=== PATIENT | female | born 1985 | race American Indian/Alaskan Native ===

== ENCOUNTER 2019-06-18 08:12 | Emergency (ER) | payer MEDICARE ==
[2019-06-18 10:03] LABS: Basophils % (Auto) 0.3 % (0.0-1.8); Eosinophils % (Auto) 0.9 % (0.0-4.3); Hematocrit 23.3 % (30.3-42.9); Hemoglobin 7.5 gm/dl (10.1-14.3); Lymphocytes # (Auto) 0.6 K/mm3 (1.2-5.4); Mean Corpuscular HGB Conc 32 % (30-34); Mean Corpuscular Volume 84 fl (79-97); Monocytes # (Auto) 0.4 K/mm3 (0.0-0.8); Monocytes % (Auto) 7.7 % (0.0-7.3); Platelet Count 156 K/mm3 (140-440); Red Blood Count 2.76 M/mm3 (3.65-5.03); Red Cell Distribution Width 18.5 % (13.2-15.2)
[2019-06-18 10:52] LABS: Calcium 8.4 mg/dL (8.4-10.2)
--- NOTE | 2019-06-18 10:58 | XRay Report ---
CHEST 2 VIEWS INDICATION / CLINICAL INFORMATION: dyspnea. COMPARISON: Chest x-ray on 01/30/2017 FINDINGS: SUPPORT DEVICES: None. HEART / MEDIASTINUM: There is moderate cardiomegaly that has developed since prior study. LUNGS / PLEURA: Mild bilateral perihilar interstitial prominence probably represents pulmonary edema. No pneumothorax. No significant pleural effusion. ADDITIONAL FINDINGS: No significant additional findings. IMPRESSION: 1. Interval development of moderate cardiomegaly and bilateral perihilar interstitial opacities likel y reflecting pulmonary edema. Signer Name: Fred Juarez MD Signed: 06/18/2019 10:53 AM Workstation Name: [id number]
--- NOTE | 2019-06-18 11:03 | Emergency Department Report ---
ED Shortness of Breath HPI - General Chief Complaint: Dyspnea/Respdistress Stated Complaint: SOB Time Seen by Provider: 06/18/19 09:10 Source: patient Mode of arrival: Ambulatory Limitations: No Limitations - History of Present Illness Initial Comments: Patient is a 34-year-old female with end-stage renal disease who does hemodialysis 3 times weekly and also has a history of hypertension who is presenting with mild shortness of breath. Patient states that her home nurse did labs 2 days ago and her hemoglobin was 6.8. Patient does state she has mild shortness of breath which is slightly worse with exertion. Patient has been noncompliant with her blood pressure medications because she claims they don't work. Patient denies any chest pain fevers chills nausea vomiting cough cold or congestion. Improves With: nothing Worsens With: nothing - Related Data Previous Rx's Medication Instructions Recorded Last Taken Type hydrALAZINE [Apresoline TAB] 50 mg PO TID #30 tab 01/31/17 Unknown Rx Docusate Sodium [Colace] 100 mg PO BID #30 capsule 06/18/19 Unknown Rx Ferrous Sulfate [Feosol 325 MG tab] 325 mg PO TID #60 tablet 06/18/19 Unknown Rx Metoprolol [Lopressor TAB] 50 mg PO BID #60 tablet 06/18/19 Unknown Rx Allergies Allergy/AdvReac Type Severity Reaction Status Date / Time No Known Allergies Allergy Unverified 01/29/17 20:35 ED Review of Systems ROS: Stated complaint: SOB Other details as noted in HPI Comment: All other systems reviewed and negative ED Past Medical Hx - Past Medical History Previous Medical History?: Yes Hx Renal Disease: Yes (M, W, F) Additional medical history: Focal Segmental Glomerulosclerosis, Hardening of the Kidneys, Tues, Thurs., Sat HD, Left arm AV Fistula - Surgical History Past Surgical History?: Yes Additional Surgical History: left Upper extremity fistula - Social History Smoking Status: Never Smoker Substance Use Type: None - Medications Home Medications: Home Medications Medication Instructions Recorded Confirmed Last Taken Type hydrALAZINE [Apresoline TAB] 50 mg PO TID #30 tab 01/31/17 Unknown Rx Docusate Sodium [Colace] 100 mg PO BID #30 capsule 06/18/19 Unknown Rx Ferrous Sulfate [Feosol 325 MG tab] 325 mg PO TID #60 tablet 06/18/19 Unknown Rx Metoprolol [Lopressor TAB] 50 mg PO BID #60 tablet 06/18/19 Unknown Rx ED Physical Exam - General Limitations: No Limitations General appearance: alert, in no apparent distress - Head Head exam: Present: atraumatic, normocephalic - Eye Eye exam: Present: normal appearance - ENT ENT exam: Present: mucous membranes moist - Neck Neck exam: Present: normal inspection - Respiratory Respiratory exam: Present: normal lung sounds bilaterally. Absent: respiratory distress, wheezes, rales, rhonchi - Cardiovascular Cardiovascular Exam: Present: regular rate, normal rhythm, normal heart sounds. Absent: systolic murmur, diastolic murmur, rubs, gallop - GI/Abdominal GI/Abdominal exam: Present: soft, normal bowel sounds. Absent: distended, tenderness, guarding - Extremities Exam Extremities exam: Present: normal inspection - Back Exam Back exam: Present: normal inspection - Neurological Exam Neurological exam: Present: alert, oriented X3 - Psychiatric Psychiatric exam: Present: normal affect, normal mood - Skin Skin exam: Present: warm, dry, intact, normal color. Absent: rash ED Course Vital Signs 06/18/19 06/18/19 06/18/19 08:15 08:16 09:41 Temperature 98.3 F 98.2 F Pulse Rate 105 H 103 H 88 Respiratory 18 20 16 Rate Blood Pressure 192/113 192/113 Blood Pressure 193/108 [Right] O2 Sat by Pulse 100 100 99 Oximetry 06/18/19 09:51 Temperature Pulse Rate 88 Respiratory Rate Blood Pressure 187/111 Blood Pressure [Right] O2 Sat by Pulse Oximetry ED Medical Decision Making - Lab Data Result diagrams: 06/18/19 09:38 06/18/19 09:38 - EKG Data -: EKG Interpreted by Pa - EKG Data 06/18/19 11:01 EKG shows a rate of 77 sinus rhythm. [place] and intervals are normal. Patient does have evidence of LVH. There are no ST segment elevations or depressions. Time of interpretation 0833 - Radiology Data Radiology results: image reviewed (patient's chest x-ray shows enlarged cardiac silhouette. There is some mild pulmonary vascular congestion with no evidence of overt pulmonary edema.) - Medical Decision Making Patient is a 34 her left black female who has end-stage renal disease and is on hemodialysis was presenting with mild shortness of breath. Patient's hemoglobin was found to be above 7 and she does not meet criteria for an acute transfusion however the patient will be started on iron therapy at home. Patient took a Epogen shot last night. Patient also has been noncompliant with her blood pressure medications because she does not feel as though Norvasc is helping. Had a long discussion with the patient regarding changing her medications to metoprolol and patient states she would like to try different medication. Sheeba ent is stable for discharge with follow with her primary care physician. Critical care attestation.: If time is entered above; I have spent that time in minutes in the direct care of this critically ill patient, excluding procedure time. ED Disposition Clinical Impression: ESRD (end stage renal disease) on dialysis, Hypertensive urgency Anemia Qualifiers: Anemia type: iron deficiency Iron deficiency anemia type: unspecified iron deficiency Qualified Code(s): D50.9 - Iron deficiency anemia, unspecified Disposition: DC- TO HOME OR SELFCARE Is pt being admited?: No Does the pt Need Aspirin: No Condition: Stable Instructions: Chronic Kidney Disease (ED), Hypertension (ED), Iron Rich Diet (ED), Iron Deficiency Anemia (ED) Prescriptions: Docusate Sodium [Colace] 100 mg PO BID #30 capsule Ferrous Sulfate [Feosol 325 MG tab] 325 mg PO TID #60 tablet Metoprolol [Lopressor TAB] 50 mg PO BID #60 tablet Referrals: PRIMARY CAREMD [Primary Care Provider] - 3-5 Days Time of Disposition: 11:23
[2019-06-18 11:26] VITALS: BP 184/110
== END 2019-06-18 11:55 | disposition home or self-care (01) ==
LOC: ED 08:12
DX: I12.0 Hypertensive chronic kidney disease with stage 5 chronic kidney disease or end stage renal disease (principal); N18.6 End stage renal disease; I16.0 Hypertensive urgency; D50.9 Iron deficiency anemia, unspecified; Z99.2 Dependence on renal dialysis; Z79.899 Other long term (current) drug therapy
CPT/HCPCS: 36415; 71046; 80048; 84703; 85025; 93005; 93010; 96374